=== PATIENT | female | born 1950 | race Asian ===

== ENCOUNTER 2024-02-28 07:11 | Emergency (ER) | payer BC ==
[~2024-02-28] VITALS: Ht 157.5 cm; Wt 63.0 kg
[2024-02-28 07:17] VITALS: O2SAT 98
[2024-02-28 07:33] VITALS: BP 149/60; PULSE 78; RESP 16; TEMP 98.5; O2SAT 97
[2024-02-28 10:34] LABS: CARBON DIOXIDE 28 mEq/L (21-32); CHLORIDE 110 mEq/L (98-107); POTASSIUM 4.9 mEq/L (3.5-5.1); SODIUM 144 mEq/L (136-145)
[2024-02-28 10:35] LABS: CALCIUM 10.2 mg/dL (8.7-10.4)
[2024-02-28 10:39] LABS: BASOPHILS % 0.3 % (0.0-2.0); CREATININE 0.7 mg/dL (0.6-1.0); EOSINOPHILS % 0.7 % (0.0-5.0); HEMATOCRIT. 41.4 % (36.0-48.0); LYMPHOCYTES % 18.7 % (20.0-50.0); MEAN CORPUSCULAR HEMOGLOBIN 32.6 pg (28.0-32.0); MEAN CORPUSCULAR HGB CONC 33.9 g/dL (31.0-37.0); MEAN CORPUSCULAR VOLUME 96.1 fL (81.0-99.0); MEAN PLATELET VOLUME 7.2 fl (7.4-10.4); MONOCYTES % 7.8 % (2.0-8.0); NEUTROPHILS % 72.5 % (40.0-76.0); PLATELET 286 x1000/uL (130-400); RED BLOOD CELL COUNT 4.31 mill/uL (4.2-5.4); RED CELL DISTRIBUTION WIDTH 12.4 % (11.6-14.6); WHITE BLOOD COUNT 10.6 x1000/uL (4.5-11.0)
[2024-02-28 10:40] LABS: GLUCOSE 98 mg/dL (70-105); UREA NITROGEN BLOOD 18 mg/dL (9-23)
[2024-02-28 10:41] LABS: ALANINE AMINOTRANSFERASE 20 IU/L (10-49)
[2024-02-28 10:42] LABS: ALBUMIN 4.4 g/dL (3.2-4.8); ASPARTATE AMINOTRANSFERASE 25 IU/L (<34); BILIRUBIN DIRECT 0.3 mg/dL (<=3.0); PROTEIN TOTAL 7.5 g/dL (6.0-8.3)
[2024-02-28 10:46] LABS: TROPONIN I HIGH SENSITIVITY < 4 ng/L (3.0-34)
[2024-02-28] MEDS ORDERED: AMOX1TAB16 MT (12:20)
[2024-02-28] MEDS ORDERED: IOHEXOL-300 100 ML BOTTLE ONE (14:24)
== END 2024-02-28 14:34 | disposition home or self-care (01) ==
LOC: ER 07:36
DX: K52.9 Noninfective gastroenteritis and colitis, unspecified (principal); E78.00 Pure hypercholesterolemia, unspecified; I10 Essential (primary) hypertension; Z90.49 Acquired absence of other specified parts of digestive tract; Z90.89 Acquired absence of other organs
CPT/HCPCS: 80076; 80048; 83690; 85025; 86850; 86900; 86901; 84484; 36415; 71045; 74177; 93005; 99285; Q9967; Z7610